=== PATIENT | female | born 1975 | race Caucasian/White ===

== ENCOUNTER 2023-07-26 16:18 | Emergency (ER) | payer MEDICAID ==
[2023-07-26] MEDS ORDERED: Ibuprofen 600 MG Tab PO ONE (19:48)
== END 2023-07-26 22:23 | disposition left against medical advice (07) ==
LOC: MW.ED 16:18
DX: S79.911A Unspecified injury of right hip, initial encounter (principal); Z88.2 Allergy status to sulfonamides; W10.9XXA Fall (on) (from) unspecified stairs and steps, initial encounter
CPT/HCPCS: 73502; 73552; 73562; 99283; A9270